=== PATIENT | male | born 1990 | race Caucasian/White ===

== ENCOUNTER → 2017-03-18 | Outpatient (REF) ==
[~2017-03-18] MED LIST: NO HOME MEDICATIONS; PHENERGAN 25 TA25 MG PO
== END ==
LOC: WSOH 14:00
DX: Z00.00 Encounter for general adult medical examination without abnormal findings (principal)
CPT/HCPCS: G0463

== ENCOUNTER 2017-11-22 19:19 | Emergency (ER) | payer OTHER ==
[~2017-11-22] VITALS: Ht 172.7 cm; Wt 76.8 kg
[2017-11-22 19:26] VITALS: BP 155/84; TEMP 98
[2017-11-22 20:00] VITALS: PULSE 96
== END 2017-11-22 19:54 | disposition home or self-care (01) ==
LOC: COL.ER 19:19
DX: S61.211A Laceration without foreign body of left index finger without damage to nail, initial encounter (principal); F17.210 Nicotine dependence, cigarettes, uncomplicated; W26.0XXA Contact with knife, initial encounter; Y92.009 Unspecified place in unspecified non-institutional (private) residence as the place of occurrence of the external cause